=== PATIENT | male | born 1955 | race Caucasian/White ===

== ENCOUNTER 2019-01-24 17:43 | Inpatient (IN) | payer OTHER ==
[2019-01-24] MEDS: morphine 2 MG INJ IV ×2 (19:49→21:11)
[2019-01-24] MEDS: SOD CHLORIDE 0.9% 500 ML IV (19:49)
[2019-01-24] MEDS: LIDOCAINE/MYLANTA 40 ML BTL PO (19:49)
[2019-01-24 20:03] LABS: ADD MAN DIFF? NO
[2019-01-24 20:15] LABS: BASOPHILS % 0.3 % (0.0-2.0); EOSINOPHILS # 0.1 10^3/ul (0.0-0.5); EOSINOPHILS % 0.8 % (0.0-7.0); HEMATOCRIT 47.3 % (42.0-52.0); HEMOGLOBIN 15.1 g/dl (14.0-18.0); LYMPHOCYTES # 2.1 10^3/ul (0.8-2.9); LYMPHOCYTES % 22.5 % (15.0-51.0); MEAN CORPUSCULAR HEMOGLOBIN 28.9 pg (29.0-33.0); MEAN CORPUSCULAR HGB CONC 31.9 g/dl (32.0-37.0); MEAN CORPUSCULAR VOLUME 90.6 fl (82.0-101.0); MONOCYTE # 0.8 10^3/ul (0.3-0.9); MONOCYTES % 8.5 % (0.0-11.0); NEUTROPHIL # 6.2 10^3/ul (1.6-7.5); NEUTROPHILS % 67.5 % (39.0-77.0); PLATELET COUNT 295 10^3/UL (140-415); RED BLOOD COUNT 5.22 10^6/ul (4.70-6.10); RED CELL DISTRIBUTION WIDTH 13.5 % (11.5-14.5)
[2019-01-24 20:15] LABS: WHITE BLOOD COUNT 9.2 10^3/ul (4.8-10.8)
[2019-01-24 20:33] LABS: ALANINE AMINOTRANSFERASE 19 IU/L (13-69); ALBUMIN 4.2 g/dl (3.3-4.9); ALBUMIN/GLOBULIN RATIO 1.07; ALKALINE PHOSPHATASE 58 IU/L (42-121); ANION GAP 9 (5-13); ASPARTATE AMINO TRANSFERASE 22 IU/L (15-46); BLOOD UREA NITROGEN 11 mg/dl (7-20); CALCIUM 9.6 mg/dl (8.4-10.2); CARBON DIOXIDE 26 mmol/L (21-31); CHLORIDE 104 mmol/L (97-110); Estimated GFR 51 mL/min (>60); GLUCOSE 111 mg/dl (70-220); LIPASE 20 U/L (23-300); POTASSIUM 4.2 mmol/L (3.5-5.1); SODIUM 139 mmol/L (135-144); TOTAL PROTEIN 8.1 g/dl (6.1-8.1)
[2019-01-24 20:44] LABS: TROPONIN-I < 0.012 ng/ml (0.000-0.120)
[2019-01-24 21:15] LABS: ADD UMIC YES; UR ASCORBIC ACID NEGATIVE (NEGATIVE); UR BILIRUBIN (Dip) NEGATIVE (NEGATIVE); UR BLOOD (Dip) 1+ mg/dL (NEGATIVE); UR CLARITY CLEAR (CLEAR); UR COLOR YELLOW (YELLOW); UR GLUCOSE (Dip) NEGATIVE (NEGATIVE); UR KETONES (Dip) NEGATIVE (NEGATIVE); UR LEUKOCYTE ESTERASE (Dip) NEGATIVE Leu/ul (NEGATIVE); UR MUCUS FEW /HPF (NONE SEEN); UR NITRITE (Dip) NEGATIVE (NEGATIVE); UR RBC 0 /HPF (0-5); UR SPECIFIC GRAVITY (Dip) 1.019 (1.003-1.030); UR TOTAL PROTEIN (Dip) NEGATIVE (NEGATIVE); UR UROBILINOGEN (Dip) NEGATIVE (NEGATIVE); UR WBC 1 /HPF (0-5)
[2019-01-25] MEDS ORDERED: NACL 0.9% 3 ML SYG IV
[2019-01-25] MEDS ORDERED: DOCUSATE SODIUM 100 MG CAP PO
[2019-01-25] MEDS: ONDANSETRON 4 MG INJ IV (00:09)
[2019-01-25] MEDS: HYDROmorphONE 0.5 MG/0.5 ML SYG IV ×3 (00:09→18:02)
[2019-01-25] MEDS: SOD CHLORIDE 0.9% 1,000 ML IV ×3 (03:11→21:46)
[2019-01-25] MEDS: PIPER-TAZO 3.375 GM IV (PMX) 100 ML IVPB ×4 (03:15→18:57)
[2019-01-25 05:49] LABS: ADD MAN DIFF? NO
[2019-01-25 05:58] LABS: BASOPHILS % 0.3 % (0.0-2.0); EOSINOPHILS # 0.1 10^3/ul (0.0-0.5); EOSINOPHILS % 0.9 % (0.0-7.0); HEMATOCRIT 45.9 % (42.0-52.0); HEMOGLOBIN 14.4 g/dl (14.0-18.0); LYMPHOCYTES # 1.3 10^3/ul (0.8-2.9); LYMPHOCYTES % 16.4 % (15.0-51.0); MEAN CORPUSCULAR HGB CONC 31.4 g/dl (32.0-37.0); MEAN CORPUSCULAR VOLUME 92.5 fl (82.0-101.0); MEAN PLATELET VOLUME 9.3 fl (7.4-10.4); MONOCYTE # 0.8 10^3/ul (0.3-0.9); MONOCYTES % 10.2 % (0.0-11.0); NEUTROPHIL # 5.7 10^3/ul (1.6-7.5); NEUTROPHILS % 71.8 % (39.0-77.0); PLATELET COUNT 274 10^3/UL (140-415); RED BLOOD COUNT 4.96 10^6/ul (4.70-6.10); RED CELL DISTRIBUTION WIDTH 13.7 % (11.5-14.5)
[2019-01-25 05:58] LABS: WHITE BLOOD COUNT 7.9 10^3/ul (4.8-10.8)
[2019-01-25 06:15] LABS: INR 1.14; PROTIME 14.7 Sec (11.9-14.9); PT RATIO 1.1
[2019-01-25 06:16] LABS: PARTIAL THROMBOPLASTIN TIME 34.9 Sec (23.0-35.0)
[2019-01-25 06:20] LABS: ALANINE AMINOTRANSFERASE 23 IU/L (13-69); ALBUMIN 3.6 g/dl (3.3-4.9); ALBUMIN/GLOBULIN RATIO 1.02; ALKALINE PHOSPHATASE 44 IU/L (42-121); ANION GAP 6 (5-13); ASPARTATE AMINO TRANSFERASE 21 IU/L (15-46); BILIRUBIN,INDIRECT 1.3 mg/dl (0-1.1); BILIRUBIN,TOTAL 1.3 mg/dl (0.2-1.3); BLOOD UREA NITROGEN 13 mg/dl (7-20); CALCIUM 8.9 mg/dl (8.4-10.2); CARBON DIOXIDE 30 mmol/L (21-31); CHLORIDE 104 mmol/L (97-110); CHOLESTEROL 146 mg/dl (100-200); CREATININE 1.41 mg/dl (0.61-1.24); Estimated GFR 50 mL/min (>60); GLUCOSE 112 mg/dl (70-220); HDL CHOLESTEROL 36 mg/dl (30-78); LDL CHOLESTEROL,CALCULATED 81 mg/dl; POTASSIUM 4.1 mmol/L (3.5-5.1); SODIUM 140 mmol/L (135-144); TOTAL PROTEIN 7.1 g/dl (6.1-8.1); TRIGLYCERIDES 147 mg/dl (0-149)
[2019-01-25 07:01] LABS: HEMOGLOBIN A1C 5.4 % (0-5.9)
[2019-01-25] MEDS: LISINOPRIL 10 MG TAB PO (09:00)
[2019-01-25] MEDS: ASPIRIN 81 MG TAB PO (09:03)
[2019-01-25] MEDS: TAMSULOSIN (SR) 0.4 MG CAP PO (21:04)
[2019-01-26] MEDS: PIPER-TAZO 3.375 GM IV (PMX) 100 ML IVPB ×4 (00:18→21:05)
[2019-01-26 05:16] LABS: ADD MAN DIFF? NO
[2019-01-26 05:23] LABS: BASOPHIL # 0.1 10^3/ul (0.0-0.1); BASOPHILS % 0.5 % (0.0-2.0); EOSINOPHILS # 0.2 10^3/ul (0.0-0.5); EOSINOPHILS % 1.5 % (0.0-7.0); HEMATOCRIT 41.9 % (42.0-52.0); HEMOGLOBIN 13.4 g/dl (14.0-18.0); LYMPHOCYTES # 1.9 10^3/ul (0.8-2.9); LYMPHOCYTES % 19.1 % (15.0-51.0); MEAN CORPUSCULAR HEMOGLOBIN 29.3 pg (29.0-33.0); MEAN CORPUSCULAR VOLUME 91.5 fl (82.0-101.0); MEAN PLATELET VOLUME 9.3 fl (7.4-10.4); MONOCYTES % 10.7 % (0.0-11.0); NEUTROPHIL # 6.6 10^3/ul (1.6-7.5); NEUTROPHILS % 67.9 % (39.0-77.0); PLATELET COUNT 236 10^3/UL (140-415); RED BLOOD COUNT 4.58 10^6/ul (4.70-6.10); RED CELL DISTRIBUTION WIDTH 13.4 % (11.5-14.5)
[2019-01-26 05:23] LABS: WHITE BLOOD COUNT 9.8 10^3/ul (4.8-10.8)
[2019-01-26 05:53] LABS: MAGNESIUM 1.9 mg/dl (1.7-2.5)
[2019-01-26 05:53] LABS: PHOSPHORUS 3.6 mg/dl (2.5-4.9)
[2019-01-26 06:10] LABS: ALANINE AMINOTRANSFERASE 27 IU/L (13-69); ALBUMIN 3.1 g/dl (3.3-4.9); ALBUMIN/GLOBULIN RATIO 0.93; ALKALINE PHOSPHATASE 41 IU/L (42-121); ANION GAP 7 (5-13); ASPARTATE AMINO TRANSFERASE 25 IU/L (15-46); BILIRUBIN,INDIRECT 1.6 mg/dl (0-1.1); BILIRUBIN,TOTAL 1.6 mg/dl (0.2-1.3); BLOOD UREA NITROGEN 15 mg/dl (7-20); CALCIUM 8.1 mg/dl (8.4-10.2); CARBON DIOXIDE 26 mmol/L (21-31); CHLORIDE 104 mmol/L (97-110); CREATININE 1.58 mg/dl (0.61-1.24); Estimated GFR 44 mL/min (>60); GLUCOSE 90 mg/dl (70-220); SODIUM 137 mmol/L (135-144); TOTAL PROTEIN 6.4 g/dl (6.1-8.1)
[2019-01-26 06:18] LABS: POTASSIUM 3.8 mmol/L (3.5-5.1)
[2019-01-26] MEDS: LISINOPRIL 10 MG TAB PO ×3 (09:00)
[2019-01-26] MEDS: ASPIRIN 81 MG TAB PO ×2 (09:00→09:30)
[2019-01-26] MEDS: LACTATED RINGER'S 1,000 ML IV (12:13)
[2019-01-26] MEDS ORDERED: ROCURONIUM 50 MG INJ (12:26)
[2019-01-26] MEDS ORDERED: FENTAnyl 50 MCG/ML VIAL (12:26)
[2019-01-26] MEDS ORDERED: LIDOCAINE 2% (SDV) 5 ML INJ (12:26)
[2019-01-26] MEDS ORDERED: CEFAZOLIN 1 GM INJ (12:26)
[2019-01-26] MEDS ORDERED: SEVOFLURANE 15 MIN (12:26)
[2019-01-26] MEDS ORDERED: MIDAZOLAM 1 MG/ML 2 ML INJ (12:26)
[2019-01-26] MEDS ORDERED: PROPOFOL 200 MG INJ (12:26)
[2019-01-26] MEDS ORDERED: KETOROLAC 15 MG INJ IV (12:30)
[2019-01-26] MEDS ORDERED: DIPHENHYDRAMINE 50 MG INJ IV (12:30)
[2019-01-26] MEDS ORDERED: LABETALOL HCL 20MG INJ IV (12:30)
[2019-01-26] MEDS ORDERED: KETOROLAC 30 MG INJ IV (12:30)
[2019-01-26] MEDS ORDERED: HYDROmorphONE 1 MG/5 ML IV SYRINGE IV ×2 (12:30)
[2019-01-26] MEDS ORDERED: MIDAZOLAM 1 MG/ML 2 ML INJ IV (12:30)
[2019-01-26] MEDS ORDERED: OXYCODONE/ACETAMINOPHEN (5/325) TAB PO (12:30)
[2019-01-26] MEDS: BUPIVACAINE 0.25%/EPI (SDV) 30 ML INJ (12:57)
[2019-01-26] MEDS: LIDOCAINE 1% (MPF) 30 ML INJ (12:58)
[2019-01-26] MEDS ORDERED: ONDANSETRON 4 MG INJ (13:02)
[2019-01-26] MEDS ORDERED: NEOSTIGMINE 3 MG/3 ML SYRINGE (13:45)
[2019-01-26] MEDS ORDERED: GLYCOPYRROLATE 0.4 MG INJ (13:45)
[2019-01-26] MEDS ORDERED: KETOROLAC 30 MG INJ (13:47)
[2019-01-26] MEDS ORDERED: METOPROLOL 5 MG INJ (13:57)
[2019-01-26] MEDS: KETOROLAC 60 MG INJ IM (14:21)
[2019-01-26] MEDS: ONDANSETRON 4 MG INJ IV (14:32)
[2019-01-26] MEDS: MEPERIDINE 25 MG INJ IV (14:32)
[2019-01-26] MEDS: HYDROmorphONE 1 MG/5 ML IV SYRINGE IV (14:32)
[2019-01-26] MEDS: IOHEXOL 300MG/ML 30 ML BTL (14:50)
[2019-01-26] MEDS ORDERED: EPHEDrine 25 MG/5 ML SYG (14:58)
[2019-01-26] MEDS: OXYCODONE/ACETAMINOPHEN (5/325) TAB PO (15:00)
[2019-01-26] MEDS: EPHEDrine 25 MG/5 ML SYG IV (15:02)
[2019-01-26] MEDS: TAMSULOSIN (SR) 0.4 MG CAP PO (21:05)
[2019-01-26] MEDS: SOD CHLORIDE 0.9% 1,000 ML IV (21:07)
[2019-01-27] MEDS: PIPER-TAZO 3.375 GM IV (PMX) 100 ML IVPB ×4 (01:58→18:14)
[2019-01-27] MEDS: HYDROmorphONE 0.5 MG/0.5 ML SYG IV ×3 (05:21→23:13)
[2019-01-27 05:29] LABS: ADD MAN DIFF? NO
[2019-01-27 05:31] LABS: WHITE BLOOD COUNT 7.2 10^3/ul (4.8-10.8)
[2019-01-27 05:31] LABS: BASOPHILS % 0.3 % (0.0-2.0); EOSINOPHILS # 0.2 10^3/ul (0.0-0.5); EOSINOPHILS % 2.9 % (0.0-7.0); HEMATOCRIT 40.5 % (42.0-52.0); HEMOGLOBIN 12.7 g/dl (14.0-18.0); LYMPHOCYTES # 1.7 10^3/ul (0.8-2.9); LYMPHOCYTES % 22.9 % (15.0-51.0); MEAN CORPUSCULAR HGB CONC 31.4 g/dl (32.0-37.0); MEAN CORPUSCULAR VOLUME 92.5 fl (82.0-101.0); MEAN PLATELET VOLUME 9.4 fl (7.4-10.4); MONOCYTE # 0.7 10^3/ul (0.3-0.9); MONOCYTES % 9.7 % (0.0-11.0); NEUTROPHIL # 4.6 10^3/ul (1.6-7.5); NEUTROPHILS % 63.8 % (39.0-77.0); PLATELET COUNT 206 10^3/UL (140-415); RED BLOOD COUNT 4.38 10^6/ul (4.70-6.10); RED CELL DISTRIBUTION WIDTH 13.4 % (11.5-14.5)
[2019-01-27 06:03] LABS: PHOSPHORUS 3.6 mg/dl (2.5-4.9)
[2019-01-27 06:03] LABS: MAGNESIUM 2.1 mg/dl (1.7-2.5)
[2019-01-27 06:22] LABS: ALANINE AMINOTRANSFERASE 41 IU/L (13-69); ALBUMIN 2.9 g/dl (3.3-4.9); ALBUMIN/GLOBULIN RATIO 0.93; ALKALINE PHOSPHATASE 44 IU/L (42-121); ANION GAP 6 (5-13); ASPARTATE AMINO TRANSFERASE 51 IU/L (15-46); BILIRUBIN,INDIRECT 0.8 mg/dl (0-1.1); BILIRUBIN,TOTAL 0.8 mg/dl (0.2-1.3); BLOOD UREA NITROGEN 14 mg/dl (7-20); CALCIUM 7.9 mg/dl (8.4-10.2); CARBON DIOXIDE 25 mmol/L (21-31); CHLORIDE 107 mmol/L (97-110); CREATININE 1.31 mg/dl (0.61-1.24); Estimated GFR 55 mL/min (>60); GLUCOSE 105 mg/dl (70-220); SODIUM 138 mmol/L (135-144)
[2019-01-27] MEDS: ASPIRIN 81 MG TAB PO (07:54)
[2019-01-27] MEDS: LISINOPRIL 10 MG TAB PO (08:03)
[2019-01-27] MEDS: SOD CHLORIDE 0.9% 1,000 ML IV ×3 (08:04→23:30)
[2019-01-27] MEDS: HYDROCODONE/APAP (5/325) TAB PO (15:45)
[2019-01-27] MEDS: TAMSULOSIN (SR) 0.4 MG CAP PO (20:55)
[2019-01-27] MEDS: HEPARIN 5,000 UNIT/1 ML VIAL SC (21:03)
[2019-01-28] MEDS: SOD CHLORIDE 0.9% 1,000 ML IV ×3 (00:30→13:47)
[2019-01-28] MEDS: PIPER-TAZO 3.375 GM IV (PMX) 100 ML IVPB ×5 (01:31→23:50)
[2019-01-28 06:19] LABS: ADD MAN DIFF? NO
[2019-01-28 06:28] LABS: BASOPHILS % 0.3 % (0.0-2.0); EOSINOPHILS # 0.2 10^3/ul (0.0-0.5); EOSINOPHILS % 2.8 % (0.0-7.0); HEMATOCRIT 41.1 % (42.0-52.0); HEMOGLOBIN 13.1 g/dl (14.0-18.0); LYMPHOCYTES # 1.7 10^3/ul (0.8-2.9); LYMPHOCYTES % 22.3 % (15.0-51.0); MEAN CORPUSCULAR HEMOGLOBIN 29.1 pg (29.0-33.0); MEAN CORPUSCULAR HGB CONC 31.9 g/dl (32.0-37.0); MEAN CORPUSCULAR VOLUME 91.3 fl (82.0-101.0); MEAN PLATELET VOLUME 9.6 fl (7.4-10.4); MONOCYTE # 0.7 10^3/ul (0.3-0.9); MONOCYTES % 9.5 % (0.0-11.0); NEUTROPHIL # 4.8 10^3/ul (1.6-7.5); NEUTROPHILS % 64.7 % (39.0-77.0); PLATELET COUNT 251 10^3/UL (140-415); RED CELL DISTRIBUTION WIDTH 13.3 % (11.5-14.5)
[2019-01-28 06:28] LABS: WHITE BLOOD COUNT 7.4 10^3/ul (4.8-10.8)
[2019-01-28 06:44] LABS: ALANINE AMINOTRANSFERASE 37 IU/L (13-69); ALBUMIN 2.9 g/dl (3.3-4.9); ALBUMIN/GLOBULIN RATIO 0.87; ALKALINE PHOSPHATASE 40 IU/L (42-121); ANION GAP 6 (5-13); ASPARTATE AMINO TRANSFERASE 33 IU/L (15-46); BILIRUBIN,INDIRECT 0.9 mg/dl (0-1.1); BILIRUBIN,TOTAL 0.9 mg/dl (0.2-1.3); BLOOD UREA NITROGEN 11 mg/dl (7-20); CALCIUM 8.2 mg/dl (8.4-10.2); CARBON DIOXIDE 26 mmol/L (21-31); CHLORIDE 105 mmol/L (97-110); CREATININE 1.28 mg/dl (0.61-1.24); Estimated GFR 56 mL/min (>60); GLUCOSE 88 mg/dl (70-220); POTASSIUM 3.9 mmol/L (3.5-5.1); SODIUM 137 mmol/L (135-144); TOTAL PROTEIN 6.2 g/dl (6.1-8.1)
[2019-01-28] MEDS: ONDANSETRON 4 MG INJ IV (07:41)
[2019-01-28] MEDS: LISINOPRIL 10 MG TAB PO (09:19)
[2019-01-28] MEDS: ASPIRIN 81 MG TAB PO (09:19)
[2019-01-28 09:20] LABS: MAGNESIUM 2.1 mg/dl (1.7-2.5)
[2019-01-28] MEDS: HEPARIN 5,000 UNIT/1 ML VIAL SC ×2 (09:21→20:50)
[2019-01-28] MEDS: HYDROmorphONE 0.5 MG/0.5 ML SYG IV ×2 (12:13→19:38)
[2019-01-28] MEDS: TAMSULOSIN (SR) 0.4 MG CAP PO (20:45)
[2019-01-29] MEDS: SOD CHLORIDE 0.9% 1,000 ML IV ×2 (03:11→05:04)
[2019-01-29] MEDS: HYDROCODONE/APAP (10/325) TAB PO (04:38)
[2019-01-29] MEDS: PIPER-TAZO 3.375 GM IV (PMX) 100 ML IVPB ×2 (05:35→12:45)
[2019-01-29 05:53] LABS: ADD MAN DIFF? NO
[2019-01-29 05:59] LABS: WHITE BLOOD COUNT 7.4 10^3/ul (4.8-10.8)
[2019-01-29 05:59] LABS: BASOPHIL # 0.1 10^3/ul (0.0-0.1); BASOPHILS % 0.7 % (0.0-2.0); EOSINOPHILS # 0.3 10^3/ul (0.0-0.5); EOSINOPHILS % 3.9 % (0.0-7.0); HEMATOCRIT 38.2 % (42.0-52.0); HEMOGLOBIN 12.3 g/dl (14.0-18.0); LYMPHOCYTES # 1.4 10^3/ul (0.8-2.9); LYMPHOCYTES % 19.6 % (15.0-51.0); MEAN CORPUSCULAR HEMOGLOBIN 29.1 pg (29.0-33.0); MEAN CORPUSCULAR HGB CONC 32.2 g/dl (32.0-37.0); MEAN CORPUSCULAR VOLUME 90.3 fl (82.0-101.0); MEAN PLATELET VOLUME 9.3 fl (7.4-10.4); MONOCYTE # 0.7 10^3/ul (0.3-0.9); MONOCYTES % 9.3 % (0.0-11.0); NEUTROPHIL # 4.8 10^3/ul (1.6-7.5); NEUTROPHILS % 65.7 % (39.0-77.0); PLATELET COUNT 267 10^3/UL (140-415); RED BLOOD COUNT 4.23 10^6/ul (4.70-6.10); RED CELL DISTRIBUTION WIDTH 13.3 % (11.5-14.5)
[2019-01-29 06:19] LABS: ANION GAP 5 (5-13); BLOOD UREA NITROGEN 12 mg/dl (7-20); CALCIUM 8.3 mg/dl (8.4-10.2); CARBON DIOXIDE 26 mmol/L (21-31); CHLORIDE 106 mmol/L (97-110); CREATININE 1.23 mg/dl (0.61-1.24); Estimated GFR 59 mL/min (>60); GLUCOSE 106 mg/dl (70-220); POTASSIUM 3.6 mmol/L (3.5-5.1); SODIUM 137 mmol/L (135-144)
[2019-01-29] MEDS: LISINOPRIL 10 MG TAB PO (08:44)
[2019-01-29] MEDS: ASPIRIN 81 MG TAB PO (08:44)
[2019-01-29] MEDS: HEPARIN 5,000 UNIT/1 ML VIAL SC (08:46)
[2019-01-29] MEDS: BISACODYL (EC) 5 MG TAB PO (12:45)
[2019-01-29] MEDS: ACETAMINOPHEN 325 MG TAB PO (15:23)
== END 2019-01-29 15:31 | disposition home or self-care (01) | DRG 418 ==
LOC: 2NE 01-25 00:01 → FTE 17:43
PROC: 0FT44ZZ Resection of Gallbladder, Percutaneous Endoscopic Approach (ICD-10-PCS; principal; 2019-01-26 12:23)
PROC: 0FB04ZX Excision of Liver, Percutaneous Endoscopic Approach, Diagnostic (ICD-10-PCS; 2019-01-26 12:23)
DX: K80.00 Calculus of gallbladder with acute cholecystitis without obstruction (principal); N17.9 Acute kidney failure, unspecified; E66.01 Morbid (severe) obesity due to excess calories; I25.10 Atherosclerotic heart disease of native coronary artery without angina pectoris; I10 Essential (primary) hypertension; I70.0 Atherosclerosis of aorta; K82.A1 Gangrene of gallbladder in cholecystitis; E78.5 Hyperlipidemia, unspecified; N20.0 Calculus of kidney; I25.2 Old myocardial infarction; M19.90 Unspecified osteoarthritis, unspecified site; Z95.5 Presence of coronary angioplasty implant and graft; Z68.35 Body mass index [BMI] 35.0-35.9, adult
CPT/HCPCS: 36415; 71045; 74018; 74176; 76705; 78226; 80048; 80053; 80061; 81001; 83036; 83690; 83735; 84100; 84443; 84484; 85025; 85610; 85730; 88304; 88307; 88313; 93005; 96361; 96374; 96376; 99285-25